=== PATIENT | female | born 1995 | race Two or more races ===

== ENCOUNTER 2021-09-17 17:47 | Emergency (ER) | payer SELFPAY ==
[~2021-09-17] VITALS: Ht 170.2 cm; Wt 76.0 kg
[2021-09-17 18:21] VITALS: BP 114/69
== END 2021-09-17 22:29 | disposition left against medical advice (07) ==
LOC: ER 17:47
DX: Z53.21 Procedure and treatment not carried out due to patient leaving prior to being seen by health care provider (principal)